=== PATIENT | female | born 1955 | race Caucasian/White ===

== ENCOUNTER 2016-06-29 00:15 | Emergency (ER) | payer OTHER ==
[2016-06-29 00:28] VITALS: BMI 26.4
[2016-06-29] MEDS ORDERED: ALBUTEROL SO4 2.5/IPRATROPIUM 0.5 INH SOL 3 ML VIAL.NEB. NEB ONE ×4 (00:29→01:12)
[2016-06-29] MEDS ORDERED: methylPREDNISolone NA SUCC 125 MG/2 ML VIAL IVPB ONE (01:05)
--- NOTE | 2016-06-29 01:14 | PDOC ---
History of Present Illness - General Chief Complaint: Shortness of Breath Stated Complaint: COUGH/DIFF BREATHING History Source: Patient Exam Limitations: No Limitations - History of Present Illness Initial Comments: 06/29/16 01:07 Patient is a 61-year-old female with history of fibromyalgia, HTN, HLD, asthma, bronchitis, smoker 1-2 cigarettes a week, complaining of asthma symptoms 3 days , associated with a moist productive cough of greenish sputum, with bilateral rib pain, and pain with breathing. She has been using her nebs consistently without relief of symptoms. 3 days ago took 20 mg of prednisone also without any relief. She has been having hot and cold chills but denies fever. States she was exposed to 2 other members in the family who have been sick. Denies chest pain, dizziness, nausea, vomiting. PMD: [facility] PMHx: As above PSOCHx: Negative alcohol negative drugs, (+) cig 1-2 per week PFamHx: Noncontributory ALL: NKDA GENERAL/CONSTITUTIONAL: [No fever or chills. No weakness. No weight change.] HEAD, EYES, EARS, NOSE AND THROAT: [No change in vision. No ear pain or discharge. No sore throat.] CARDIOVASCULAR: [No chest pain or shortness of breath.] RESPIRATORY:(+) cough, wheezing, (-) hemoptysis.] GASTROINTESTINAL: [No nausea, vomiting, diarrhea or constipation. No rectal bleeding.] GENITOURINARY: [No dysuria, frequency, or change in urination.] MUSCULOSKELETAL: (+) pain joint or muscle swelling or pain. No neck or back pain.] SKIN AND BREASTS: [No rash or easy bruising.] NEUROLOGIC: [No headache, vertigo, loss of consciousness, or loss of sensation.] PSYCHIATRIC: [No depression or anxiety.] ENDOCRINE: [No increased thirst. No abnormal weight change.] HEMATOLOGIC/LYMPHATIC: [No anemia, easy bleeding, or history of blood clots.] ALLERGIC/IMMUNOLOGIC: [No hives or skin allergy. No latex allergy.] GENERAL: [The patient is awake, alert, and fully oriented, in no acute distress. ] HEAD: [Normal with no signs of trauma.] EYES: [Pupils equal, round and reactive to light, extraocular movements intact, sclera anicteric, conjunctiva clear.] ENT: [Ears normal, nares patent, oropharynx clear without exudates. Moist mucous membranes.] NECK: [Normal range of motion, supple without lymphadenopathy, JVD, or masses.] LUNGS: bilaterally wheezes, and no crackles (+) moist cough, (+) tenderness over b/l lower ribs HEART: [Regular rate and rhythm, normal S1 and S2 without murmur, rub.] ABDOMEN: [Soft, nontender, normoactive bowel sounds. No guarding, no rebound. No masses.] EXTREMITIES: [Normal range of motion, no edema. No clubbing or cyanosis. No cords, erythema, or tenderness.] NEUROLOGICAL: [Cranial nerves II through XII grossly intact. Normal speech, normal gait.] PSYCH: [Normal mood, normal affect.] SKIN: [Warm, Dry, normal turgor, no rashes or lesions noted.] Past History - Past Medical History Allergies/Adverse Reactions: Allergies Allergy/AdvReac Type Severity Reaction Status Date / Time No Known Allergies Allergy Verified 06/29/16 00:28 Home Medications: Ambulatory Orders Aspirin [ASA -] 81 mg PO DAILY 08/31/15 Fluticasone Prop 0.05% Nasal [Flonase -] 1 spray NS DAILY spray 09/03/15 Meclizine HCl [Antivert -] 25 mg PO DAILY PRN #7 tablet 09/03/15 Albuterol Sulfate Inhaler - [Ventolin HFA Inhaler -] 2 puff IH Q4H PRN #0 inhaler 09/04/15 Mometasone Furoate [Asmanex 110Mcg -] 1 puff IH BID #1 inhaler 09/04/15 Acetaminophen [Tylenol .Regular Strength -] 650 mg PO Q6H PRN #0 tablet Amlodipine Besylate [Norvasc -] 5 mg PO DAILY #0 tablet 01/22/16 Acetaminophen W/ Codeine #3 [Tylenol # 3 -] 1 tab PO Q6H #14 tablet MDD 6 Prednisone [Deltasone -] 40 mg PO DAILY #14 tablet 06/29/16 Anemia: Yes Asthma: Yes Cancer: No Cardiac Disorders: No CVA: No COPD: No CHF: No Dementia: No Diabetes: No GI Disorders: No Disorders: Yes (kidney stones) HTN: Yes Hypercholesterolemia: Yes Kidney Stones: Yes Liver Disease: No Seizures: No Thyroid Disease: No - Surgical History Abdominal Surgery: Yes (hernia repair) - Immunization History Immunization Up to Date: Yes - Psycho/Social/Smoking Cessation Hx Anxiety: No Suicidal Ideation: No Smoking History: Former smoker Have you smoked in the past 12 months: No Number of Cigarettes Smoked Daily: 4 Information on smoking cessation initiated: No 'Breaking Loose' booklet given: 09/09/15 Hx Alcohol Use: Yes Drug/Substance Use Hx: No Substance Use Type: None Hx Substance Use Treatment: No *Physical Exam - Vital Signs Last Vital Signs Temp Pulse Resp BP Pulse Ox 98.5 F 108 H 26 H 135/87 98 06/29/16 00:20 06/29/16 00:20 06/29/16 00:20 06/29/16 00:20 06/29/16 00:20 ED Treatment Course - LABORATORY CBC & Chemistry Diagram: 06/29/16 01:22 06/29/16 01:22 - RADIOLOGY Radiology Studies Ordered: Category Date Time Status CHEST PA & LAT [RAD] Stat Radiology 06/29/16 01:04 Ordered - Medications Given in the ED: ED Medications Discontinued Medications Generic Name Dose Route Start Last Admin Trade Name Freq PRN Reason Stop Dose Admin Albuterol/Ipratropium 1 amp 06/29/16 00:29 06/29/16 00:29 Duoneb - NEB 06/29/16 00:30 2 amp NOW ONE Administration Medical Decision Making - Medical Decision Making 06/29/16 Patient is a 61-year-old female with history of fibromyalgia, HTN, HLD, asthma, bronchitis, smoker 1-2 cigarettes a week, complaining of asthma symptoms 3 days , associated with a moist productive cough of greenish sputum, with bilateral rib pain, and pain with breathing. DDX includes but not limited to viral illness , asthma exacerbation, bronchitis, pneumonia, Chest x-ray, labs Solu-Medrol, DuoNeb, Tylenol IV Reassess 06/29/16 02:[address] rate 101, NAD, (-) ST-T wave changes labs no acute findings 06/29/16 02:53 cxr neg for acute disease Patient still having pain with cough will treat with Robitussin-AC. 06/29/16 04:09 Patient has mild wheezes will give albuterol neb, after which we'll repeat vitals are stable discharge home. Selected Entries 06/29/16 04:35 Temperature 99.8 F H Pulse Rate [ 113 H Left] Respiratory 18 Rate Blood Pressure 141/76 [Left Arm] O2 Sat by Pulse 94 L Oximetry (%) Patient has treatement x 4 in the ED I discussed the physical exam findings, ancillary test results and final diagnoses with the patient. I answered all of the patient's questions. The patient was satisfied with the care received and felt comfortable with the discharge plan and treatment plan. The Patient agrees to follow up with the primary care physician within 24-72 hours. *DC/Admit/Observation/Transfer Diagnosis at time of Disposition: Asthma exacerbation, Costochondritis - Discharge Dispostion Disposition: HOME Condition at time of disposition: Stable - Prescriptions Prescriptions: Prednisone [Deltasone -] 40 mg PO DAILY #14 tablet Acetaminophen W/ Codeine #3 [Tylenol # 3 -] 1 tab PO Q6H #14 tablet MDD 6 - Referrals Referrals: Priti Grimes [Primary Care Provider] - - Patient Instructions Printed Discharge Instructions: DI for Costochondritis, DI for Asthma -- Adult Additional Instructions: Your Discharge Instructions: You must call primary care physician within 24 hours to arrange follow-up. Return to the Emergency Department with any new, persistent or worsening symptoms, for fever, chills, SOB, dizziness or any other concerning changes that may occur. Do not take any additional Tylenol if you take the Tylenol with codeine
[2016-06-29] MEDS ORDERED: ACETAMINOPHEN 1000 MG/100 ML VIAL (NON FORMULARY) IVPB ONE (01:28)
[2016-06-29] MEDS ORDERED: methylPREDNISolone NA SUCC 125 MG/2 ML VIAL ONE (01:30)
[2016-06-29] MEDS ORDERED: ACETAMINOPHEN INJECTION 100 ML IVPB ONE (01:30)
[2016-06-29 01:41] LABS: BASOPHIL 0.8 % (0-2.0); EOSINOPHIL 1.1 % (0-4.5); MCH 28.9 pg (25.7-33.7); MCHC 33.4 g/dl (32.0-36.0); MEAN CELL VOLUME 86.7 fl (80-96); NEUTROPHILS 60.7 % (42.8-82.8); PLATELET COUNT 331 K/MM3 (134-434); RDW 15.3 % (11.6-15.6); WHITE BLOOD COUNT 7.2 K/mm3 (4.0-10.0)
[2016-06-29 02:03] LABS: ALBUMIN 3.7 g/dl (3.4-5.0); ALK PHOS 79 U/L (45-117); ANION GAP 12 (8-16); BILIRUBIN,TOTAL 0.4 mg/dL (0.2-1.0); CALCIUM 8.9 mg/dL (8.5-10.1); CO2 27 mmol/L (21-32); CREATININE 0.6 mg/dL (0.55-1.02); GLUCOSE,RANDOM 100 mg/dL (74-106); SGPT/ALT 22 U/L (12-78); TOT PROT 7.3 g/dl (6.4-8.2)
[2016-06-29 02:05] LABS: SGOT/AST 40 U/L (15-37)
[2016-06-29] MEDS ORDERED: guaiFENesin/CODEINE 10 ML UNIT-DOSE CUPS PO ONE (02:49)
[2016-06-29] MEDS ORDERED: guaiFENesin/CODEINE 5 ML UNIT-DOSE CUPS PO ONE (02:56)
[2016-06-29] MEDS ORDERED: ALBUTEROL SO4 0.083% IH SOL 2.5 MG/3 ML VIAL.NEB. NEB ONE ×2 (03:41→03:59)
[2016-06-29 04:46] VITALS: BP 141/76; PULSE 113; TEMP 99.8
--- NOTE | 2016-06-29 12:03 | EKG ---
Test Reason : Blood Pressure : / mmHG Vent. Rate : 101 BPM Atrial Rate : 101 BPM P-R Int : 120 ms QRS Dur : 074 ms QT Int : 354 ms P-R-T Axes : 063 026 071 degrees QTc Int : 459 ms POOR DATA QUALITY, INTERPRETATION MAY BE ADVERSELY AFFECTED SINUS TACHYCARDIA NONSPECIFIC ST ABNORMALITY ABNORMAL ECG WHEN COMPARED WITH ECG OF 18-JAN-2016 02:21, QT HAS SHORTENED Confirmed by LILLY DUMONT, ALEXEI ([id number]) on 06/29/2016 12:02:50 PM Referred By: Confirmed By:ALEXEI CARR MD
== END 2016-06-29 05:01 | disposition home or self-care (01) ==
LOC: JER 00:15
PROC: 3E0F7GC Introduction of Other Therapeutic Substance into Respiratory Tract, Via Natural or Artificial Opening (ICD-10-PCS; principal; 2016-06-29)
PROC: 3E033NZ Introduction of Analgesics, Hypnotics, Sedatives into Peripheral Vein, Percutaneous Approach (ICD-10-PCS; 2016-06-29)
PROC: 3E033GC Introduction of Other Therapeutic Substance into Peripheral Vein, Percutaneous Approach (ICD-10-PCS; 2016-06-29)
DX: M94.0 Chondrocostal junction syndrome [Tietze] (principal); J45.901 Unspecified asthma with (acute) exacerbation; D64.9 Anemia, unspecified; Z87.442 Personal history of urinary calculi; I10 Essential (primary) hypertension; E78.00 Pure hypercholesterolemia, unspecified; Z87.891 Personal history of nicotine dependence
CPT/HCPCS: 36415; 71020-TC; 80053; 85025; 93005; 93010; 94640; 96374; 96375; 99282-25

== ENCOUNTER 2016-08-14 16:07 | Emergency (ER) | payer OTHER ==
[2016-08-14 16:18] VITALS: BP 146/89; PULSE 96; TEMP 99; BMI 27.9
[2016-08-14 16:53] LABS: URINE APPEARANCE TURBID; URINE BILIRUBIN NEGATIVE (NEGATIVE); URINE COLOR YELLOW; URINE GLUCOSE (UA) NEGATIVE (NEGATIVE); URINE KETONE NEGATIVE (NEGATIVE); URINE NITRITE POSITIVE (NEGATIVE); URINE UROBILINOGEN NEGATIVE E.U./dl (0.2-1.0)
--- NOTE | 2016-08-14 17:07 | PDOC ---
History of Present Illness - General Chief Complaint: Urinary Problem Stated Complaint: URINARY PROBLEM Time Seen by Provider: 08/14/16 16:30 History Source: Patient Exam Limitations: No Limitations - History of Present Illness Travel History: No Initial Comments: 08/14/16 17:03 61-year-old female presents to the ED with complaints of urinary frequency and suprapubic pressure without fever, chills, nausea, back pain, or hematuria x 3 days. Patient denies diabetes, recent change in meds, recent illness. patient does state history of kidney stones with stent placement. Timing/Duration: reports: intermittent Quality: reports: moderate, fullness Abdominal Pain Onset Location: reports: suprapubic Activities at Onset: reports: none Aggravating Factors: improves with: Voiding Alleviating Factors: improves with: None Past History - Past Medical History Allergies/Adverse Reactions: Allergies Allergy/AdvReac Type Severity Reaction Status Date / Time No Known Allergies Allergy Verified 08/14/16 16:12 Home Medications: Ambulatory Orders Aspirin [ASA -] 81 mg PO DAILY 08/31/15 Fluticasone Prop 0.05% Nasal [Flonase -] 1 spray NS DAILY spray 09/03/15 Meclizine HCl [Antivert -] 25 mg PO DAILY PRN #7 tablet 09/03/15 Albuterol Sulfate Inhaler - [Ventolin HFA Inhaler -] 2 puff IH Q4H PRN #0 inhaler 09/04/15 Mometasone Furoate [Asmanex 110Mcg -] 1 puff IH BID #1 inhaler 09/04/15 Acetaminophen [Tylenol .Regular Strength -] 650 mg PO Q6H PRN #0 tablet Amlodipine Besylate [Norvasc -] 5 mg PO DAILY #0 tablet 01/22/16 Acetaminophen W/ Codeine #3 [Tylenol # 3 -] 1 tab PO Q6H #14 tablet MDD 6 Prednisone [Deltasone -] 40 mg PO DAILY #14 tablet 06/29/16 Anemia: Yes Asthma: Yes Cancer: No Cardiac Disorders: No CVA: No COPD: No CHF: No Dementia: No Diabetes: No GI Disorders: No Disorders: Yes (kidney stones) HTN: Yes Hypercholesterolemia: Yes Kidney Stones: Yes Liver Disease: No Seizures: No Thyroid Disease: No - Surgical History Abdominal Surgery: Yes (hernia repair) - Immunization History Immunization Up to Date: Yes - Psycho/Social/Smoking Cessation Hx Anxiety: No Suicidal Ideation: No Smoking History: Former smoker Have you smoked in the past 12 months: No Number of Cigarettes Smoked Daily: 4 Information on smoking cessation initiated: No 'Breaking Loose' booklet given: 09/09/15 Hx Alcohol Use: Yes Drug/Substance Use Hx: No Substance Use Type: None Hx Substance Use Treatment: No Patient Lives Alone: No Lives with/in: spouse/SO Review of Systems - Review of Systems Able to Perform ROS?: Yes Constitutional: No: Symptoms Reported HEENTM: No: Symptoms Reported Respiratory: No: Symptoms reported Cardiac (ROS): No: Symptoms Reported ABD/GI: Yes: Abdominal cramping : Yes: Dysuria, Frequency, Urgency Integumentary: No: Symptoms Reported Neurological: No: Symptoms reported Endocrine: No: Symptoms Reported *Physical Exam - Vital Signs Last Vital Signs Temp Pulse Resp BP Pulse Ox 99 F 96 H 19 146/89 97 08/14/16 16:12 08/14/16 16:12 08/14/16 16:12 08/14/16 16:12 08/14/16 16:12 - Physical Exam General Appearance: Yes: Nourished, Appropriately Dressed. No: Apparent Distress Gastrointestinal/Abdominal: positive: Normal Bowel Sounds, Soft, Tenderness ( mild mid suprapubic). negative: Distended, Guarding, Rebound Musculoskeletal: positive: CVA Tenderness (mild bilateral) Integumentary: positive: Normal Color, Warm, Moist Neurologic: positive: Motor Strength 5/5 (ambulatory) Medical Decision Making - Medical Decision Making 08/14/16 17:07 Patient complaining of urinary frequency and dark color urine, and appropriate pressure for the past 3 days patient on exam has mild mid suprapubic tenderness with rae CVA tenderness. Patient ordered for urinalysis and urine culture. 08/14/16 17:48 Laboratory Tests 08/14/16 16:40 Urine Protein 2+ H Urine Blood 2+ H Ur Leukocyte Esterase 3+ H D Urine RBC 218 Urine WBC 2712 Pt ordered for kidney ultrasound to r/o hydronephrosis 08/14/16 18:44 Ultrasound shows no renal mass, stones or hydronephrosis. Patient be discharged home with Bactrim. *DC/Admit/Observation/Transfer Diagnosis at time of Disposition: Pyelonephritis - Discharge Dispostion Disposition: HOME Condition at time of disposition: Good - Patient Instructions Printed Discharge Instructions: DI for Kidney Infection Additional Instructions: Please take Bactrim until completed please drink plenty of fluids. Please take Motrin for discomfort. If symptoms worsen or continue despite being on antibiotics she needs to return to the ED. otherwise follow-up with your PCP/urologist.
[2016-08-14 17:33] LABS: URINE BLOOD 2+ (NEGATIVE); URINE LEUK ESTERASE 3+ (NEGATIVE); URINE PROTEIN 2+ (NEGATIVE)
[2016-08-14 17:34] LABS: URINE BACTERIA RARE /hpf (NONE SEEN); URINE MUCUS FEW; URINE RBC 218 /hpf (0-3); URINE WBC 2712 /hpf (3-5)
[2016-08-14] MEDS ORDERED: SULFAMETHOXAZOLE/TRIMETHOPRIM 800MG/160MG D.S. TABLET PO ONE (18:46)
[2016-08-14] MEDS ORDERED: SULFAMETHOXAZOLE/TRIMETHOPRIM 800MG/160MG D.S. TABLET ONE (18:54)
== END 2016-08-14 18:57 | disposition home or self-care (01) ==
LOC: JERFT 16:07
DX: N12 Tubulo-interstitial nephritis, not specified as acute or chronic (principal); D64.9 Anemia, unspecified; J45.909 Unspecified asthma, uncomplicated; I10 Essential (primary) hypertension; Z87.442 Personal history of urinary calculi; E78.00 Pure hypercholesterolemia, unspecified; Z87.891 Personal history of nicotine dependence
CPT/HCPCS: 76775-TC; 81003; 81015; 87086; 87186; 99281-25

== ENCOUNTER 2017-06-19 18:37 | Emergency (ER) | payer OTHER ==
[2017-06-19 19:07] VITALS: BP 142/98; PULSE 83; TEMP 98.3
--- NOTE | 2017-06-19 19:07 | PDOC ---
Rapid Medical Evaluation Time Seen by Provider: 06/19/17 19:02 Medical Evaluation: Allergies Allergy/AdvReac Type Severity Reaction Status Date / Time No Known Allergies Allergy Verified 08/14/16 16:12 06/19/17 19:03 The patient presents with a chief complaint of: [lower abdominal pain, blood in urine (has been having since 06/02 was seen by PMD for this) , back pain. H/o kidney stones. ] I have performed a brief in-person evaluation of this patient. Pertinent physical exam findings: VSS, afebrile, Lungs clear, + CVA tenderness left, abdomen is soft, tender bilateral lower quadrants. I have ordered the following: [Urinalysis, urine culture. ] The patient will proceed to the ED for further evaluation. Discharge Disposition - Diagnosis Blood in urine Qualifiers: Hematuria type: unspecified type Qualified Code(s): R31.9 - Hematuria, unspecified Abdominal pain Qualifiers: Abdominal location: lower abdomen, unspecified Qualified Code(s): R10.30 - Lower abdominal pain, unspecified - Referrals - Patient Instructions - Post Discharge Activity
[2017-06-19 21:13] LABS: URINE APPEARANCE CLEAR; URINE BILIRUBIN NEGATIVE (NEGATIVE); URINE BLOOD 1+ (NEGATIVE); URINE COLOR LTYELLOW; URINE GLUCOSE (UA) NEGATIVE (NEGATIVE); URINE KETONE NEGATIVE (NEGATIVE); URINE LEUK ESTERASE NEGATIVE (NEGATIVE); URINE NITRITE NEGATIVE (NEGATIVE); URINE PROTEIN NEGATIVE (NEGATIVE); URINE UROBILINOGEN NEGATIVE mg/dL (0.2-1.0)
[2017-06-19 21:21] LABS: EPI CELLS RARE /HPF (FEW); URINE HYALINE CAST 4 /lpf; URINE MUCUS RARE
--- NOTE | 2017-06-19 22:22 | PDOC ---
History of Present Illness - General History Source: Patient Exam Limitations: No Limitations - History of Present Illness Initial Comments: 06/20/17 01:10 Patient is a 62 year old female with a significant past medical history of inflamed colon, kidney stones, who presents to the ED with complaints of bloody urine that began earlier today. Patient reports experiencing intermittent nausea, and vomiting that began 4 days ago. She reports experiencing bloody urine that occured this afternoon prompting her to come into the ED. Patient reports experiencing slight cough as well as mid back pain that radiate to the buttocks bilaterally. Denies chest pain, Sob. Denies fevers, chills. Denies contact with sick individuals, out of state travel. Denies any other symptoms. Allergies: None Social history: Current smoker (4 cigarettes per day). No alcohol. No illicit drugs. Surgical history: None PMD: None <Brody Ernst - Last Filed: 06/20/17 01:10> <Urszula Moscoso - Last Filed: 06/20/17 01:20> - General Chief Complaint: Pain Stated Complaint: abd PAIN/hematurea,hx of kidney stones Time Seen by Provider: 06/19/17 19:02 Past History <Brody Ernst - Last Filed: 06/20/17 01:10> - Past Medical History Anemia: Yes Asthma: Yes Cancer: No Cardiac Disorders: No CVA: No COPD: No CHF: No DVT: No Dementia: No Diabetes: No GI Disorders: No Disorders: Yes (kidney stones) HTN: Yes Hypercholesterolemia: Yes Kidney Stones: Yes Liver Disease: No Seizures: No Thyroid Disease: No - Surgical History Abdominal Surgery: Yes (hernia repair) - Immunization History Immunization Up to Date: Yes - Suicide/Smoking/Psychosocial Hx Smoking History: Former smoker Have you smoked in the past 12 months: No Number of Cigarettes Smoked Daily: 4 Information on smoking cessation initiated: Yes 'Breaking Loose' booklet given: 06/19/17 Hx Alcohol Use: Yes Drug/Substance Use Hx: No Substance Use Type: None Hx Substance Use Treatment: No <Urszula Moscoso - Last Filed: 06/20/17 01:20> - Past Medical History Allergies/Adverse Reactions: Allergies Allergy/AdvReac Type Severity Reaction Status Date / Time No Known Allergies Allergy Verified 06/19/17 19:03 Home Medications: Ambulatory Orders Aspirin [ASA -] 81 mg PO DAILY 08/31/15 Fluticasone Prop 0.05% Nasal [Flonase -] 1 spray NS DAILY spray 09/03/15 Meclizine HCl [Antivert -] 25 mg PO DAILY PRN #7 tablet 09/03/15 Albuterol Sulfate Inhaler - [Ventolin HFA Inhaler -] 2 puff IH Q4H PRN #0 inhaler 09/04/15 Mometasone Furoate [Asmanex 110Mcg -] 1 puff IH BID #1 inhaler 09/04/15 Prednisone [Deltasone -] 40 mg PO DAILY #14 tablet 06/29/16 Sulfamethoxazole/Trimethoprim [Bactrim Ds -] 1 tab PO BID #20 tablet 08/14/16 Amlodipine Besylate [Norvasc -] 10 mg PO DAILY 06/20/17 Review of Systems - Review of Systems Able to Perform ROS?: Yes Comments:: 06/20/17 01:11 CONSTITUTIONAL: Absent: fever, chills, diaphoresis, generalized weakness, malaise, loss of appetite HEENT: Absent: rhinorrhea, nasal congestion, throat pain, throat swelling, difficulty swallowing, mouth swelling, ear pain, eye pain, visual Changes CARDIOVASCULAR: Absent: chest pain, syncope, palpitations, irregular heart rate, lightheadedness , peripheral edema RESPIRATORY: Absent: cough, shortness of breath, dyspnea with exertion, orthopnea, wheezing, stridor, hemoptysis GASTROINTESTINAL: +Nausea. +vomiting. Absent: abdominal pain, abdominal distension, diarrhea, constipation, melena, hematochezia GENITOURINARY: +Hematuria. Absent: dysuria, frequency, urgency, hesitancy, hematuria, flank pain, genital pain MUSCULOSKELETAL: Absent: myalgia, arthralgia, joint swelling SKIN: Absent: rash, itching, pallor HEMATOLOGIC/IMMUNOLOGIC: Absent: easy bleeding, easy bruising, lymphadenopathy, frequent infections ENDOCRINE: Absent: unexplained weight gain, unexplained weight loss, heat intolerance, cold intolerance NEUROLOGIC: Absent: headache, focal weakness or paresthesias, dizziness, unsteady gait, seizure, mental status changes, bladder or bowel incontinence PSYCHIATRIC: Absent: anxiety, depression, suicidal or homicidal ideation, hallucinations. All Other Systems: Reviewed and Negative <Brody Ernst - Last Filed: 06/20/17 01:10> *Physical Exam - Vital Signs Last Vital Signs Temp Pulse Resp BP Pulse Ox 98.3 F 83 18 142/98 100 06/19/17 19:05 06/19/17 19:05 06/19/17 19:05 06/19/17 19:05 06/19/17 19:05 - Physical Exam Comments: 06/20/17 01:11 GENERAL: Well developed, well nourished. Awake and alert. No acute distress. HEENT: Normocephalic, atraumatic. PERRLA, EOMI. No conjunctival pallor. Sclera are non- icteric. Moist mucous membranes. Oropharynx is clear. NECK: Supple. Full ROM. No JVD. Carotid pulses 2+ and symmetric, without bruits. No thyromegaly. No lymphadenopathy. CARDIOVASCULAR: Regular rate and rhythm. No murmurs, rubs, or gallops. Distal pulses are 2+ and symmetric. PULMONARY: No evidence of respiratory distress. Lungs clear to auscultation bilaterally. No wheezing, rales or rhonchi. ABDOMINAL: +LLQ and LRQ tenderness. Soft. Non-tender. Non-distended. No rebound or guarding. No organomegaly. Normoactive bowel sounds. MUSCULOSKELETAL: +CVA tenderness to the buttocks. Normal range of motion at all joints. No bony deformities or tenderness. No CVA tenderness. EXTREMITIES: No cyanosis. No clubbing. No edema. No calf tenderness. SKIN: Warm and dry. Normal capillary refill. No rashes. No jaundice. NEUROLOGICAL: Alert, awake, appropriate. Cranial nerves 2-12 intact. No deficits to light touch and temperature in face, upper extremities and lower extremities. No motor deficits in the in face, upper extremities and lower extremities. Normoreflexic in the upper and lower extremities. Normal speech. Toes are down-going bilaterally. Gait is normal without ataxia. PSYCHIATRIC: Cooperative. Good eye contact. Appropriate mood and affect. <Brody Ernst - Last Filed: 06/20/17 01:10> - Vital Signs Last Vital Signs Temp Pulse Resp BP Pulse Ox 98.3 F 83 18 142/98 100 06/19/17 19:05 06/19/17 19:05 06/19/17 19:05 06/19/17 19:05 06/19/17 19:05 <Urszula Moscoso - Last Filed: 06/20/17 01:20> ED Treatment Course - LABORATORY CBC & Chemistry Diagram: 06/19/17 23:00 06/19/17 23:00 - ADDITIONAL ORDERS Additional order review: Laboratory Results 06/19/17 06/19/17 23:00 20:47 Sodium 140 Potassium 4.2 Chloride 104 Carbon Dioxide 27 Anion Gap 9 BUN 16 Creatinine 0.6 Creat Clearance w eGFR > 60 Random Glucose 93 Calcium 9.4 Total Bilirubin 0.3 D AST 17 ALT 21 Alkaline Phosphatase 106 Total Protein 7.7 Albumin 3.9 Urine Color Ltyellow Urine Appearance Clear Urine pH 5.0 Ur Specific [place] 1.006 Urine Protein Negative Urine Glucose (UA) Negative Urine Ketones Negative Urine Blood 1+ H Urine Nitrite Negative Urine Bilirubin Negative Urine Urobilinogen Negative Ur Leukocyte Esterase Negative Urine WBC (Auto) <1 Urine RBC (Auto) 1 Ur Epithelial Cells Rare Hyaline Casts 4 Urine Mucus Rare 06/19/17 23:00 RBC 4.69 MCV 88.8 MCHC 33.2 RDW 14.3 MPV 7.8 Neutrophils % 62.6 Lymphocytes % 28.1 Monocytes % 6.4 Eosinophils % 2.5 D Basophils % 0.4 - Medications Given in the ED: ED Medications Discontinued Medications Generic Name Dose Route Start Last Admin Trade Name Zina PRN Reason Stop Dose Admin Sodium Chloride 1,000 mls @ 1,000 mls/hr 06/19/17 22:34 06/19/17 23:42 Normal Saline - IV 06/19/17 23:33 1,000 mls/hr ASDIR STA Administration Morphine Sulfate 2 mg 06/19/17 22:36 06/19/17 23:43 Morphine Injection - IVPUSH 06/19/17 22:37 2 mg ONCE ONE Administration Ondansetron HCl 4 mg 06/19/17 22:37 06/19/17 23:43 Zofran Injection IVPUSH 06/19/17 22:38 4 mg ONCE ONE Administration <Brody Ernst - Last Filed: 06/20/17 01:10> - LABORATORY CBC & Chemistry Diagram: 06/19/17 23:00 06/19/17 23:00 - ADDITIONAL ORDERS Additional order review: Laboratory Results 06/19/17 20:47 Urine Color Ltyellow Urine Appearance Clear Urine pH 5.0 Ur Specific [place] 1.006 Urine Protein Negative Urine Glucose (UA) Negative Urine Ketones Negative Urine Blood 1+ H Urine Nitrite Negative Urine Bilirubin Negative Urine Urobilinogen Negative Ur Leukocyte Esterase Negative Urine WBC (Auto) <1 Urine RBC (Auto) 1 Ur Epithelial Cells Rare Hyaline Casts 4 Urine Mucus Rare <Urszula Moscoso - Last Filed: 06/20/17 01:20> *DC/Admit/Observation/Transfer - Attestations Scribe Attestion: 06/20/17 01:11 Documentation prepared by Brody Ernst, acting as medical office specialist for Urszula Moscoso MD/DO. <Brody Ernst - Last Filed: 06/20/17 01:10> <Urszula Moscoso - Last Filed: 06/20/17 01:20> Diagnosis at time of Disposition: Flank pain Abdominal pain Qualifiers: Abdominal location: lower abdomen, unspecified Qualified Code(s): R10.30 - Lower abdominal pain, unspecified - Discharge Dispostion Disposition: HOME Condition at time of disposition: Stable - Patient Instructions Printed Discharge Instructions: DI for Low Back Pain, DI for Abdominal Pain- Adult Additional Instructions: please followup with your regular physician
[2017-06-19] MEDS ORDERED: SODIUM CHLORIDE 1,000 ML IV STA (22:34)
[2017-06-19] MEDS ORDERED: morphine CARPU-JECT 2 MG/1 ML DISP.SYRIN IVPUSH ONE (22:36)
[2017-06-19] MEDS ORDERED: ONDANSETRON 4 MG/2 ML VIAL IVPUSH ONE (22:37)
[2017-06-19 23:21] LABS: BASO % 0.4 % (0-2.0); EOS % 2.5 % (0-4.5); HEMATOCRIT 41.6 % (32.4-45.2); HEMOGLOBIN 13.8 GM/dL (10.7-15.3); LYMPH % 28.1 % (8-40); MCH 29.5 pg (25.7-33.7); MCHC 33.2 g/dl (32.0-36.0); MEAN CELL VOLUME 88.8 fl (80-96); MEAN PLT VOLUME 7.8 fl (7.5-11.1); MONO % 6.4 % (3.8-10.2); NEUT % 62.6 % (42.8-82.8); PLATELET COUNT 387 K/MM3 (134-434); RBC 4.69 M/mm3 (3.60-5.2); RDW 14.3 % (11.6-15.6); WHITE BLOOD COUNT 8.2 K/mm3 (4.0-10.0)
[2017-06-19] MEDS ORDERED: morphine CARPU-JECT 4 MG/1 ML DISP.SYRIN ONE (23:28)
[2017-06-19] MEDS ORDERED: ONDANSETRON 4 MG/2 ML VIAL ONE (23:29)
[2017-06-19 23:41] LABS: ALBUMIN 3.9 g/dl (3.4-5.0); ALK PHOS 106 U/L (45-117); ANION GAP 9 (8-16); BILIRUBIN,TOTAL 0.3 mg/dL (0.2-1.0); BLOOD UREA NITROGEN 16 mg/dL (7-18); CALCIUM 9.4 mg/dL (8.5-10.1); CHLORIDE 104 mmol/L (98-107); CO2 27 mmol/L (21-32); CREATININE 0.6 mg/dL (0.55-1.02); GLUCOSE,RANDOM 93 mg/dL (74-106); POTASSIUM 4.2 mmol/L (3.5-5.1); SGOT/AST 17 U/L (15-37); SGPT/ALT 21 U/L (12-78); SODIUM 140 mmol/L (136-145); TOT PROT 7.7 g/dl (6.4-8.2)
[2017-06-20] MEDS ORDERED: PANTOPRAZOLE 40 MG TABLET (FP) PO ONE (01:19)
[2017-06-20] MEDS ORDERED: MAG HYDROX/AL HYDROX/SIMETH 30 ML UNIT-DOSE CUP PO ONE (01:19)
[2017-06-20] MEDS ORDERED: MAG HYDROX/AL HYDROX/SIMETH 30 ML UNIT-DOSE CUP ONE (01:21)
[2017-06-20] MEDS ORDERED: PANTOPRAZOLE 40 MG TABLET (FP) ONE (01:21)
== END 2017-06-20 01:32 | disposition home or self-care (01) ==
LOC: JER 18:37
PROC: 3E033NZ Introduction of Analgesics, Hypnotics, Sedatives into Peripheral Vein, Percutaneous Approach (ICD-10-PCS; principal; 2017-06-19)
PROC: 3E0337Z Introduction of Electrolytic and Water Balance Substance into Peripheral Vein, Percutaneous Approach (ICD-10-PCS; 2017-06-19)
PROC: 3E033GC Introduction of Other Therapeutic Substance into Peripheral Vein, Percutaneous Approach (ICD-10-PCS; 2017-06-19)
DX: R10.30 Lower abdominal pain, unspecified (principal); I10 Essential (primary) hypertension; E78.00 Pure hypercholesterolemia, unspecified; Z87.442 Personal history of urinary calculi
CPT/HCPCS: 36415; 74176-TC; 80053; 81003; 81015; 85025; 87086; 96361; 96374; 96375; 99281-25; 99283-25

== ENCOUNTER 2017-07-19 17:28 | Emergency (ER) | payer OTHER ==
[2017-07-19 17:58] VITALS: TEMP 98; BMI 27.4
[2017-07-19] MEDS ORDERED: diphenhydrAMINE HCL 25 MG CAPSULE (FP) PO ONE ×2 (20:17→20:21)
--- NOTE | 2017-07-19 20:21 | PDOC ---
History of Present Illness - General Chief Complaint: Cold Symptoms Stated Complaint: SOB Time Seen by Provider: 07/19/17 20:07 History Source: Patient Exam Limitations: No Limitations - History of Present Illness Initial Comments: 07/19/17 20:20 The patient is a 62F with a PMH of fibromyalgia, HTN, HLD, asthma, bronchitis, current every day smoker who presents with a feeling of something in her mouth since Monday. She states that she feels mucus in her mouth which makes her unable to breath. She denies any symptoms including fever, chills, CP, SOB, nausea, vomiting, abdominal pain. Past History - Past Medical History Allergies/Adverse Reactions: Allergies Allergy/AdvReac Type Severity Reaction Status Date / Time No Known Allergies Allergy Verified 06/19/17 19:03 Home Medications: Ambulatory Orders Aspirin [ASA -] 81 mg PO DAILY 08/31/15 Fluticasone Prop 0.05% Nasal [Flonase -] 1 spray NS DAILY spray 09/03/15 Meclizine HCl [Antivert -] 25 mg PO DAILY PRN #7 tablet 09/03/15 Albuterol Sulfate Inhaler - [Ventolin HFA Inhaler -] 2 puff IH Q4H PRN #0 inhaler 09/04/15 Mometasone Furoate [Asmanex 110Mcg -] 1 puff IH BID #1 inhaler 09/04/15 predniSONE [Deltasone -] 40 mg PO DAILY #14 tablet 06/29/16 Amlodipine Besylate [Norvasc -] 10 mg PO DAILY 06/20/17 Pantoprazole Sodium [Protonix] 40 mg PO DAILY #20 tablet. 06/20/17 Polyethylene Glycol 3350 [Miralax (For Daily Use) -] 17 gm PO DAILY PRN #1 bottle 06/20/17 Anemia: Yes Asthma: Yes Cancer: No Cardiac Disorders: No CVA: No COPD: No CHF: No DVT: No Dementia: No Diabetes: No GI Disorders: No Disorders: Yes (kidney stones) HTN: Yes Hypercholesterolemia: Yes Kidney Stones: Yes Liver Disease: No Seizures: No Thyroid Disease: No - Surgical History Abdominal Surgery: Yes (hernia repair) - Immunization History Immunization Up to Date: Yes - Suicide/Smoking/Psychosocial Hx Smoking History: Current every day smoker Have you smoked in the past 12 months: No Number of Cigarettes Smoked Daily: 2 Information on smoking cessation initiated: Yes 'Breaking Loose' booklet given: 06/19/17 Hx Alcohol Use: Yes Drug/Substance Use Hx: No Substance Use Type: None Hx Substance Use Treatment: No Review of Systems - Review of Systems Able to Perform ROS?: Yes Comments:: 07/19/17 20:32 GENERAL/CONSTITUTIONAL: No fever or chills. No weakness. HEAD, EYES, EARS, NOSE AND THROAT: Positive for sensation of something stuck in her throat. No change in vision. No ear pain or discharge. CARDIOVASCULAR: No chest pain, palpitations, or lightheadedness. RESPIRATORY: No cough, wheezing, shortness of breath, or hemoptysis. GASTROINTESTINAL: No nausea, vomiting, diarrhea, constipation, or abdominal pain. GENITOURINARY: No dysuria, frequency, hematuria, or change in urination. MUSCULOSKELETAL: No joint or muscle swelling or pain. No neck or back pain. SKIN: No rash or lesions. NEUROLOGIC: No headache, numbness, tingling, weakness, loss of consciousness, or change in strength/sensation. ENDOCRINE: No increased thirst. No abnormal weight change. HEMATOLOGIC/LYMPHATIC: No anemia, easy bleeding, or history of blood clots. ALLERGIC/IMMUNOLOGIC: No hives or skin allergy. Is the patient limited Bengali proficient: No *Physical Exam - Vital Signs Last Vital Signs Temp Pulse Resp BP Pulse Ox 98 F 20 174/86 100 07/19/17 17:54 07/19/17 17:54 07/19/17 17:54 07/19/17 17:54 - Physical Exam Comments: 07/19/17 20:32 GENERAL: Well developed, well nourished. Awake and alert. No acute distress. HEENT: Normocephalic, atraumatic. Hearing grossly normal. Moist mucous membranes. PERRLA, EOMI. No conjunctival pallor. Sclera are non-icteric. Oropharynx is clear. NECK: Supple. Full ROM. No JVD. No lymphadenopathy. CARDIOVASCULAR: Regular rate and rhythm. No murmurs, rubs, or gallops. PULMONARY: No evidence of respiratory distress. Lungs clear to auscultation bilaterally. No wheezing, rales or rhonchi. ABDOMINAL: Soft. Non-tender. Non-distended. No rebound or guarding. GENITOURINARY: No CVA tenderness bilaterally. MUSCULOSKELETAL: Normal range of motion at all joints. No bony deformities or tenderness. EXTREMITIES: No cyanosis. No clubbing. No edema. No calf tenderness. SKIN: Warm and dry. Normal capillary refill. No rashes. No jaundice. NEUROLOGICAL: Alert, awake, appropriate. Cranial nerves 2-12 intact. Normal speech. Gait is normal without ataxia. PSYCHIATRIC: Cooperative. Good eye contact. Appropriate mood and affect. Medical Decision Making - Medical Decision Making 07/19/17 20:33 The patient is a 62F with an extensive PMH who presents with cold like symptoms and a sensation that something is stuck in her throat. This is likely 2/2 to postnasal drip since she's experienced the cold like symptoms on Monday. Will give benadryl for cessation of postnasal drip and d/c home with PCP f/u. *DC/Admit/Observation/Transfer Diagnosis at time of Disposition: Throat irritation - Discharge Dispostion Disposition: HOME Condition at time of disposition: Stable Admit: No - Referrals Referrals: Priti Grimes [Primary Care Provider] - - Patient Instructions Printed Discharge Instructions: DI for Viral Upper Respiratory Infection -- Adult Additional Instructions: Please return to the ER if symptoms persist, worsen, or new symptoms arise. Please follow up with your primary care physician in 2-3 days. Please return to the ER if you have any signs or symptoms of chest pain, shortness of breath, uncontrollable fever, chills, nausea, vomiting, numbness, tingling, or weakness in any part of your body, changes in vision, or slurred speech. Take benadryl as needed for the sensation that something is stuck in your throat. - Post Discharge Activity
--- NOTE | 2017-07-19 21:01 | PDOC ---
Attending Attestation - Resident Resident Name: Alphonso Villalta - ED Attending Attestation I have performed the following: I have examined & evaluated the patient, The case was reviewed & discussed with the resident, I agree w/resident's findings & plan, Exceptions are as noted - HPI HPI: 07/19/17 21:10 "The patient is a 62 year old female, with a significant past medical history of HTN, HLD, asthma, bronchitis, and kidney stones, who presents to the emergency department with cold like symptoms and build up of mucus in her throat that she seems unable to clear by coughing for the past week. The patient denies chest pain, headache and dizziness. Denies fever, chills, nausea, vomit, diarrhea and constipation. Denies dysuria, frequency, urgency and hematuria. She notes that she has not taken her blood pressure medication today. Allergies: None Past surgical history: Hernia repair Social history: Cigarette use (Everyday). No alcohol or drug use reported " - Physicial Exam PE: 07/19/17 21:11 "GENERAL: Awake, alert, and fully oriented, in no acute distress HEAD: No signs of trauma EYES: PERRLA, EOMI, sclera anicteric, conjunctiva clear ENT: Auricles normal inspection, hearing grossly normal, nares patent, oropharynx clear without exudates. Moist mucosa NECK: Nontender, no stepoffs, Normal ROM, supple, no lymphadenopathy, JVD, or masses LUNGS: Breath sounds equal, clear to auscultation bilaterally. No wheezes, and no crackles HEART: Regular rate and rhythm, normal S1 and S2, no murmurs, rubs or gallops ABDOMEN: Soft, nontender, normoactive bowel sounds. No guarding, no rebound. No masses EXTREMITIES: Normal range of motion, no edema. No clubbing or cyanosis. No cords, erythema, or tenderness NEUROLOGICAL: Cranial nerves II through XII intact. 5/5 strength and sensation in all extremities, Normal speech, normal gait, normal cerebellar function SKIN: Warm, Dry, normal turgor, no rashes or lesions noted." - Medical Decision Making 07/19/17 21:11 62 F with sensation of mucus in her throat. Likely post-nasal drip. Pt with normal oropharynx. Mild nasal congestion. Clear lungs. Vitals notable for HTN, but pt admits to not taking her BP meds today. - Benadryl - F/u PMD Pt is well appearing, with normal vitals. Clinically stable for DC at this time. I discussed the physical exam findings, ancillary test results and final diagnoses with the patient. I answered all of the patient's questions. The patient was satisfied with the care received and felt comfortable with the discharge plan and treatment plan. The patient agrees to follow up with the primary care physician within 24-72 hours.
[2017-07-19 21:13] VITALS: BP 157/88; PULSE 72
== END 2017-07-19 21:13 | disposition home or self-care (01) ==
LOC: JER 17:28
DX: J06.9 Acute upper respiratory infection, unspecified (principal); R09.82 Postnasal drip; I10 Essential (primary) hypertension; E78.00 Pure hypercholesterolemia, unspecified; J45.909 Unspecified asthma, uncomplicated; J40 Bronchitis, not specified as acute or chronic; F17.210 Nicotine dependence, cigarettes, uncomplicated; Z87.442 Personal history of urinary calculi; Z79.82 Long term (current) use of aspirin; M79.7 Fibromyalgia
CPT/HCPCS: 99281-25

== ENCOUNTER 2024-02-18 17:12 | Inpatient (IN) | payer OTHER ==
[2024-02-18] MEDS ORDERED: SULFAMETHOXAZOLE/TRIMETHOPRIM 800MG/160MG D.S. TABLET ONE (19:12)
[2024-02-18] MEDS: SULFAMETHOXAZOLE/TRIMETHOPRIM 800MG/160MG D.S. TABLET PO ONE (19:36)
[2024-02-18] MEDS ORDERED: amLODIPine BESYLATE 10 MG TABLET (FP) ONE (19:48)
[2024-02-18] MEDS: amLODIPine BESYLATE 10 MG TABLET (FP) PO ONE (19:55)
[2024-02-18 20:34] LABS: BASO % 0.3 % (0-2.0); EOS % 0.3 % (0-4.5); HEMATOCRIT 41.3 % (32.4-45.2); HEMOGLOBIN 13.6 GM/dL (10.7-15.3); LYMPH % 9.9 % (8-40); MCH 29.1 pg (25.7-33.7); MCHC 32.9 g/dl (32.0-36.0); MEAN CELL VOLUME 88.5 fl (80-96); MEAN PLT VOLUME 8.4 fl (7.5-11.1); MONO % 4.4 % (3.8-10.2); NEUT % 85.1 % (42.8-82.8); PLATELET COUNT 359 10^3/uL (134-434); RBC 4.67 M/mm3 (3.60-5.2); RDW 14.7 % (11.6-15.6); WHITE BLOOD COUNT 13.4 K/mm3 (4.0-10.0)
[2024-02-18 20:51] LABS: POTASSIUM 3.7 mmol/L (3.5-5.1)
[2024-02-18 20:52] LABS: CALCIUM 9.1 mg/dL (8.5-10.1)
[2024-02-18 20:53] LABS: BLOOD UREA NITROGEN 9.8 mg/dL (7-18)
[2024-02-18 20:57] LABS: BILIRUBIN,TOTAL 0.6 mg/dL (0.2-1); CREATININE 0.6 mg/dL (0.55-1.3); TOT PROT 7.6 g/dl (6.4-8.2)
[2024-02-18 21:13] LABS: ERYTHROCYTE SEDIMENTATION RATE 25 mm/hr (0-30)
[2024-02-18] MEDS ORDERED: KETOROLAC TROMETHAMINE 15 MG/ML VIAL ONE (21:36)
[2024-02-18] MEDS: KETOROLAC TROMETHAMINE 30 MG/1 ML VIAL IVPUSH ONE (21:39)
[2024-02-19] MEDS ORDERED: CLINDAMYCIN 600MG PREMIX IVPB 600 MG/50 ML BAG IVPB ONE ×2 (02:01→09:12)
[2024-02-19] MEDS: CLINDAMYCIN 600MG PREMIX IVPB 600 MG/50 ML BAG IVPB SCH (02:06)
[2024-02-19] MEDS: KETOROLAC TROMETHAMINE 15 MG/ML VIAL IVPUSH ONE (06:45)
[2024-02-19 07:43] LABS: BASO % 0.5 % (0-2.0); EOS % 1.8 % (0-4.5); HEMATOCRIT 37.2 % (32.4-45.2); HEMOGLOBIN 12.3 GM/dL (10.7-15.3); LYMPH % 21.1 % (8-40); MCH 29.2 pg (25.7-33.7); MCHC 33.1 g/dl (32.0-36.0); MEAN CELL VOLUME 88.2 fl (80-96); MEAN PLT VOLUME 8.4 fl (7.5-11.1); MONO % 6.8 % (3.8-10.2); NEUT % 69.8 % (42.8-82.8); PLATELET COUNT 325 10^3/uL (134-434); RBC 4.22 M/mm3 (3.60-5.2); RDW 14.4 % (11.6-15.6); WHITE BLOOD COUNT 9.8 K/mm3 (4.0-10.0)
[2024-02-19 07:46] LABS: CALCIUM 8.8 mg/dL (8.5-10.1); POTASSIUM 3.4 mmol/L (3.5-5.1)
[2024-02-19 07:49] LABS: BLOOD UREA NITROGEN 10.4 mg/dL (7-18)
[2024-02-19 07:51] LABS: CREATININE 0.6 mg/dL (0.55-1.3)
[2024-02-19] MEDS ORDERED: ALBUTEROL SO4 0.083% IH SOL 2.5 MG/3 ML VIAL.NEB. NEB PRN (08:06)
[2024-02-19] MEDS ORDERED: amLODIPine BESYLATE 5 MG TABLET (FP) ONE (09:11)
[2024-02-19] MEDS ORDERED: DOCUSATE SODIUM 100 MG CAPSULE (FP) PO ONE (09:12)
[2024-02-19] MEDS: amLODIPine BESYLATE 5 MG TABLET (FP) PO SCH (09:22)
[2024-02-19] MEDS: DOCUSATE SODIUM 100 MG CAPSULE (FP) PO SCH (09:22)
[2024-02-19] MEDS ORDERED: UMECLIDINIUM/VILANTEROL (ANORO) 62.5/25 MCG INHALER IH SCH (10:00)
[2024-02-19] MEDS ORDERED: oxyCODONE HCL 5 MG TABLET ONE (10:34)
[2024-02-19] MEDS: oxyCODONE HCL 5 MG TABLET PO PRN (11:09)
[2024-02-19 15:52] VITALS: BMI 25.3
[2024-02-19] MEDS: POTASSIUM CHLORIDE ORAL LIQUID 20 MEQ/15 ML PO ONE (17:49)
[2024-02-19] MEDS: PIPERACILLIN/TAZOB 4.5 GM 4.5 GM in DEXTROSE 5%-WATER 100 ML IVPB SCH (17:50)
[2024-02-20 10:25] LABS: BASO % 0.7 % (0-2.0); EOS % 7.2 % (0-4.5); HEMATOCRIT 36.6 % (32.4-45.2); HEMOGLOBIN 12.1 GM/dL (10.7-15.3); LYMPH % 27.7 % (8-40); MCH 29.4 pg (25.7-33.7); MCHC 33.1 g/dl (32.0-36.0); MEAN PLT VOLUME 8.7 fl (7.5-11.1); MONO % 5.7 % (3.8-10.2); NEUT % 58.7 % (42.8-82.8); PLATELET COUNT 304 10^3/uL (134-434); RBC 4.12 M/mm3 (3.60-5.2); RDW 14.8 % (11.6-15.6); WHITE BLOOD COUNT 6.5 K/mm3 (4.0-10.0)
[2024-02-20] MEDS: ASPIRIN 81 MG CHEWABLE TABLETS PO SCH (10:28)
[2024-02-20] MEDS: PANTOPRAZOLE 40 MG TABLET PO SCH (10:28)
[2024-02-20 11:01] LABS: POTASSIUM 3.8 mmol/L (3.5-5.1)
[2024-02-20 11:10] LABS: CALCIUM 8.6 mg/dL (8.5-10.1)
[2024-02-20 11:11] LABS: BLOOD UREA NITROGEN 10.5 mg/dL (7-18)
[2024-02-20 11:14] LABS: CREATININE 0.7 mg/dL (0.55-1.3)
[2024-02-20 11:16] LABS: BILIRUBIN,TOTAL 0.5 mg/dL (0.2-1); TOT PROT 6.2 g/dl (6.4-8.2)
[2024-02-20] MEDS: ACETAMINOPHEN 325 MG TABLET (FP) PO PRN (21:50)
[2024-02-21 07:10] VITALS: RESP 18
[2024-02-21] MEDS ORDERED: PIPERACILLIN/TAZOBACTAM 4.5 GM VIAL IVPB ONE (20:35)
[2024-02-23 13:43] VITALS: BP 118/61; PULSE 88; TEMP 98.1
== END 2024-02-23 19:09 | disposition home or self-care (01) | DRG 603 ==
LOC: JER 17:12 → JERBED 21:58 → OBSVTOIN 02-19 10:01 → J7W 02-19 15:39
PROVIDERS: ADMIT Internal Medicine; ATTEND Internal Medicine
DX: L03.113 Cellulitis of right upper limb (principal); I10 Essential (primary) hypertension; M79.7 Fibromyalgia; E78.5 Hyperlipidemia, unspecified; J45.909 Unspecified asthma, uncomplicated; D64.9 Anemia, unspecified
CPT/HCPCS: 36415; 73110-TC-RT-FY; 73130-TC-RT-FY; 76882-TC-LT; 80048; 80053; 85025; 85651; 86140; 87040; 99285-25; G0378